=== PATIENT | male | born 1980 | race African-American/Black ===

== ENCOUNTER 2016-03-09 09:44 | Outpatient (CLI) | payer BC ==
--- NOTE | 2016-03-09 11:14 | RAD ---
FOUR VIEWS OF THE RIGHT KNEE: DATE: 03/09/16. COMPARISON: None. HISTORY: Right knee pain, arthritis. FINDINGS: There is an incompletely visualized intramedullary matt within the distal right femoral shaft. There is no knee joint effusion. No displaced fracture or dislocation seen. IMPRESSION: No acute osseous abnormality. POS: [facility]
== END 2016-03-09 09:45 | disposition home or self-care (01) ==
LOC: NAV RAD 09:44
PROVIDERS: ATTEND Specialist
DX: M19.90 Unspecified osteoarthritis, unspecified site (principal)